=== PATIENT | male | born 1985 | race Caucasian/White ===

== ENCOUNTER 2023-09-09 12:50 | Emergency (ER) | payer OTHER ==
[~2023-09-09] VITALS: Ht 165.1 cm; Wt 64.4 kg
[2023-09-09 13:06] VITALS: BP 134/78; TEMP 98.4
[2023-09-09 16:12] VITALS: O2SAT 100
== END 2023-09-09 16:13 | disposition home or self-care (01) ==
LOC: ER 13:06
DX: S82.141A Displaced bicondylar fracture of right tibia, initial encounter for closed fracture (principal); R60.0 Localized edema; X58.XXXA Exposure to other specified factors, initial encounter; Y93.89 Activity, other specified; Y92.89 Other specified places as the place of occurrence of the external cause; Y99.8 Other external cause status
CPT/HCPCS: 93971-TC